=== PATIENT | female | born 1950 | race Caucasian/White ===

== ENCOUNTER 2018-03-12 12:45 | Inpatient (IN) | payer OTHER ==
[~2018-03-12] VITALS: Ht 165.1 cm; Wt 68.5 kg
[2018-03-12] MEDS ORDERED: GABAPENTIN400 MG PO (13:31)
[2018-03-12] MEDS ORDERED: ULTRAM50 MG PO (13:32)
[2018-03-19] MEDS ORDERED: DOCUSATE SODIU100 MG PO (07:52)
[2018-03-19] MEDS ORDERED: CLONAZEPAM1 MG PO (07:53)
[2018-03-19] MEDS ORDERED: PERCOCET 5-3251 EACH PO (07:53)
== END 2018-03-19 12:35 | disposition home or self-care (01) | DRG 454 ==
LOC: O/R 03-18 04:45 → PED 03-18 04:45 → SURH 03-18 07:00 → PED 03-18 11:19 → SURH 03-18 12:45 → PED 03-19 12:35
PROVIDERS: Orthopaedic Surgery Orthopaedic Surgery of the Spine
PROC: 0RG2071 Fusion of 2 or more Cervical Vertebral Joints with Autologous Tissue Substitute, Posterior Approach, Posterior Column, Open Approach (ICD-10-PCS; 2018-03-18)
PROC: 0RT30ZZ Resection of Cervical Vertebral Disc, Open Approach (ICD-10-PCS; 2018-03-18)
PROC: 07DS3ZZ Extraction of Vertebral Bone Marrow, Percutaneous Approach (ICD-10-PCS; 2018-03-18)
PROC: 0RG20A0 Fusion of 2 or more Cervical Vertebral Joints with Interbody Fusion Device, Anterior Approach, Anterior Column, Open Approach (ICD-10-PCS; principal; 2018-03-18 07:00)
DX: M50.01 Cervical disc disorder with myelopathy, high cervical region (principal); M47.12 Other spondylosis with myelopathy, cervical region

== ENCOUNTER 2019-04-03 10:07 | Outpatient (CLI) | payer OTHER ==
[~2019-04-03 10:07] MED LIST: CLONAZEPAM1 MG PO; DOCUSATE SODIU100 MG PO; GABAPENTIN400 MG PO; PERCOCET 5-3251 EACH PO; ULTRAM50 MG PO
== END 2019-04-03 14:46 | disposition home or self-care (01) ==
LOC: TOM 10:07
DX: R10.32 Left lower quadrant pain (principal)

== ENCOUNTER 2021-03-21 01:43 | Emergency (ER) | payer OTHER ==
[~2021-03-21] VITALS: Ht 165.1 cm; Wt 47.6 kg
[2021-03-21] MEDS ORDERED: LEVSIN/SL0.125 MG SL (07:55)
[2021-03-21] MEDS ORDERED: CIPRO500 MG PO (07:55)
== END 2021-03-21 08:04 | disposition home or self-care (01) ==
LOC: ER 01:43
DX: K57.30 Diverticulosis of large intestine without perforation or abscess without bleeding (principal); R10.32 Left lower quadrant pain; R10.31 Right lower quadrant pain

== ENCOUNTER 2021-04-27 22:59 | Emergency (ER) | payer OTHER ==
[~2021-04-27] VITALS: Ht 165.1 cm; Wt 49.0 kg
[~2021-04-27 22:59] MED LIST changes: +CIPRO500 MG PO; +LEVSIN/SL0.125 MG SL
[2021-04-27] MEDS ORDERED: LEVOTHYROXINE25 MCG (23:11)
[2021-04-28] MEDS ORDERED: LEVSIN/SL0.125 MG SL (05:20)
[2021-04-28] MEDS ORDERED: INTESTINEX680 M1 PO (05:20)
== END 2021-04-28 05:43 | disposition home or self-care (01) ==
LOC: ER 22:59
DX: K57.30 Diverticulosis of large intestine without perforation or abscess without bleeding (principal); R10.31 Right lower quadrant pain; R10.32 Left lower quadrant pain